=== PATIENT | male | born 1995 | race Two or more races ===

== ENCOUNTER 2023-03-27 10:41 | Emergency (ER) | payer MEDICAID, OTHER ==
[~2023-03-27] VITALS: Ht 172.7 cm; Wt 97.1 kg
[2023-03-27] MEDS ORDERED: HYDROcodone-ACET 5/325MG TAB PO ONE (11:45)
[2023-03-27] MEDS ORDERED: HYDR1TAB97 PO (12:30)
[2023-03-27 13:04] VITALS: BP 147/87; PULSE 84; RESP 20; TEMP 98.4; O2SAT 99
== END 2023-03-27 13:06 | disposition home or self-care (01) ==
LOC: ER 10:41
DX: S42.92XA Fracture of left shoulder girdle, part unspecified, initial encounter for closed fracture (principal); Z90.49 Acquired absence of other specified parts of digestive tract; W00.0XXA Fall on same level due to ice and snow, initial encounter; Y93.89 Activity, other specified; Y92.89 Other specified places as the place of occurrence of the external cause; Y99.8 Other external cause status
CPT/HCPCS: 73030